=== PATIENT | female | born 1985 | race Caucasian/White ===

== ENCOUNTER 2025-02-21 15:33 | Inpatient (IN) ==
[2025-02-21] MEDS: ONDANSETRON 4 MG/2 ML VIAL IV ONE (16:08)
[2025-02-21] MEDS: 0.9 % SODIUM CHLORIDE 1,000 ML IV ONE (16:08)
[2025-02-21] MEDS: CIPROFLOXACIN 400 MG/200 ML BAG IV ONE (16:21)
[2025-02-21] MEDS: metroNIDAZOLE 500 MG/100 ML BAG IV ONE (16:41)
[2025-02-21] MEDS: CIPROFLOXACIN 400 MG/200 ML BAG IV SCH (17:46)
[2025-02-21] MEDS: metroNIDAZOLE 500 MG/100 ML BAG IV SCH (17:46)
[2025-02-21] MEDS: HYDROmorphone 0.5 MG/0.5 ML SYRINGE IV PRN (17:53)
[2025-02-21] MEDS: ONDANSETRON 4 MG/2 ML VIAL IV PRN (20:36)
[2025-02-21] MEDS: DEXTROSE 5%-LR 1,000 ML IV SCH (20:43)
[2025-02-21] MEDS: ACETAMINOPHEN 1,000 MG/100 ML BAG IV PRN (22:40)
[2025-02-22 07:11] LABS: Hematocrit 33.8 % (34.1-44.9); Hemoglobin 10.9 g/dL (11.2-15.7); Mean Corpuscular HGB Conc 32.2 g/dL (31.0-36.0); Platelet Count 180 K/mcL (140-440); RBC 3.78 M/mcL (3.59-5.38); WBC 8.0 K/mcL (4.5-11.0)
[2025-02-22 07:12] LABS: Anion Gap 9.0 (8.0-16.0); Blood Urea Nitrogen 5 mg/dL (6-20); Calcium 8.3 mg/dL (8.6-10.4); Carbon Dioxide 24 mmol/L (22-30); Chloride 102 mmol/L (96-108); Glucose 120 mg/dL (70-105); Potassium 3.4 mmol/L (3.3-5.1); Sodium 135 mmol/L (133-145)
[2025-02-22] MEDS: metroNIDAZOLE 500 MG/100 ML BAG IV SCH (10:21)
[2025-02-23] MEDS: DEXTROSE 5%-LR 1,000 ML IV SCH (00:32)
[2025-02-23 06:17] LABS: Hematocrit 32.2 % (34.1-44.9); Hemoglobin 10.5 g/dL (11.2-15.7); Mean Corpuscular HGB Conc 32.6 g/dL (31.0-36.0); Platelet Count 189 K/mcL (140-440); RBC 3.64 M/mcL (3.59-5.38); WBC 7.4 K/mcL (4.5-11.0)
[2025-02-23 06:56] LABS: Anion Gap 10.0 (8.0-16.0); Blood Urea Nitrogen 3 mg/dL (6-20); Calcium 8.3 mg/dL (8.6-10.4); Carbon Dioxide 24 mmol/L (22-30); Chloride 102 mmol/L (96-108); Glucose 98 mg/dL (70-105); Potassium 3.5 mmol/L (3.3-5.1); Sodium 136 mmol/L (133-145)
[2025-02-23] MEDS ORDERED: MAG HYDROX/AL HYDROX/SIMETH 30 ML ORAL.SUSP PO PRN (19:29)
[2025-02-23] MEDS ORDERED: CALCIUM CARBONATE 500 MG TAB.CHEW CHEWED PRN (19:29)
[2025-02-23] MEDS: PANTOPRAZOLE 40 MG TABLET PO SCH (20:09)
[2025-02-24] MEDS: INSULIN LISPRO 1 UNIT/0.01 ML UNIT SQ ONE (07:34)
[2025-02-24] MEDS: DEXTROSE 5%-LR 1,000 ML IV SCH (10:48)
[2025-02-24] MEDS: HYDROmorphone 0.5 MG/0.5 ML SYRINGE IV PRN ×2 (17:03→19:55)
[2025-02-24] MEDS: HYDROmorphone 0.5 MG/0.5 ML SYRINGE ONE (17:06)
[2025-02-25 06:21] LABS: Hematocrit 31.7 % (34.1-44.9); Hemoglobin 10.4 g/dL (11.2-15.7); Mean Corpuscular HGB Conc 32.8 g/dL (31.0-36.0); Platelet Count 216 K/mcL (140-440); RBC 3.61 M/mcL (3.59-5.38); WBC 5.9 K/mcL (4.5-11.0)
[2025-02-25 06:48] LABS: Anion Gap 8.0 (8.0-16.0); Blood Urea Nitrogen 6 mg/dL (6-20); Calcium 8.3 mg/dL (8.6-10.4); Carbon Dioxide 26 mmol/L (22-30); Chloride 104 mmol/L (96-108); Glucose 102 mg/dL (70-105); Potassium 3.6 mmol/L (3.3-5.1); Sodium 138 mmol/L (133-145)
[2025-02-25] MEDS: fentaNYL 100 MCG/2 ML VIAL IV PRN (15:20)
[2025-02-25] MEDS ORDERED: IOPAMIDOL 100 ML BOTTLE IV ONE (16:27)
[2025-02-27 06:16] LABS: Basophils # (Auto) 0.04 K/mcL (0.00-0.30); Basophils % (Auto) 0.7 % (0.0-2.0); Eosinophils # (Auto) 0.30 K/mcL (0.00-0.70); Eosinophils % (Auto) 5.6 % (0.0-7.0); Hematocrit 32.8 % (34.1-44.9); Hemoglobin 10.6 g/dL (11.2-15.7); Lymphocytes # (Auto) 2.04 K/mcL (1.50-4.80); Lymphocytes % (Auto) 37.8 % (15.5-49.0); Mean Corpuscular HGB Conc 32.3 g/dL (31.0-36.0); Monocytes # (Auto) 0.44 K/mcL (0.10-0.90); Monocytes % (Auto) 8.1 % (1.0-12.0); Neutrophils % (Auto) 47.4 % (38.0-78.0); Platelet Count 237 K/mcL (140-440); RBC 3.70 M/mcL (3.59-5.38); WBC 5.4 K/mcL (4.5-11.0)
[2025-02-27 09:08] VITALS: O2SAT 98
[2025-02-27 15:49] VITALS: TEMP 97.5
== END 2025-02-27 18:44 | disposition home or self-care (01) | DRG 392 ==
LOC: ED 15:33 → MEDSUR 20:31
PROVIDERS: ADMIT Surgery Surgical Critical Care; ATTEND Family Medicine Adult Medicine